=== PATIENT | male | born 1965 | race Caucasian/White ===

== ENCOUNTER 2018-03-01 12:49 | Emergency (ER) | payer MEDICARE ==
[~2018-03-01] VITALS: Ht 188 cm; Wt 95.3 kg
--- NOTE | 2018-03-01 13:22 | Emergency Room Report ---
History of Present Illness General Chief Complaint: Medication Refill Source: Patient (Mickey Deleon) Present Illness Allergies: Coded Allergies: AMINOGLYCOSIDES (Verified Allergy, Unknown, 03/01/18) STREPTOMYCIN (Verified Allergy, Unknown, 03/01/18) Nursing Documentation-[facility] Past Medical History: No History, Except For Hx Hypertension: Yes (Mickey Deleon) Physical Exam Vital Signs Date Time Temp Pulse Resp B/P (MAP) Pulse Ox O2 Delivery O2 Flow Rate FiO2 03/01/18 13:00 97.7 78 18 163/96 97 Room Air 97.7 (Mickey Deleon) Medical Decision Making PA Attestation Please note that I was notified of the patient's request for refill of his medications. At this time I did speak to the patient and notified him that we do not routinely refill HIV medications through the ER. He requires close clinic follow-up, and prescription as appropriate. After we spoke he notified me that our conversation was being taped, I also notified him that it is illegal to be taped without prior noticed and that taped is illegal, he proceeded to explain that he has multiple legal issues and he is aware of the appropriateness. (Harika Cannon DO) Diagnostic Impression: Primary Impression: Encounter for medication refill Last Vital Signs Date Time Temp Pulse Resp B/P (MAP) Pulse Ox O2 Delivery O2 Flow Rate FiO2 03/01/18 13:00 97.7 78 18 163/96 97 Room Air 97.7 (Mickey Deleon) Disposition: HOME, SELF-CARE Condition: Stable Patient Instructions: Medicine Refill at the Emergency Department Additional Instructions: go to the referred facility for medication refill of HIV meds and narcotics Mickey Deleon Mar 01, 2018 13:22 Harika Cannon DO Mar 01, 2018 13:32
[2018-03-01 13:29] VITALS: BP 154/87
[2018-03-01 13:30] VITALS: BP 154/87
== END 2018-03-01 13:30 | disposition home or self-care (01) ==
LOC: EMR 13:18
DX: Z76.0 Encounter for issue of repeat prescription (principal); I10 Essential (primary) hypertension; Z88.1 Allergy status to other antibiotic agents
CPT/HCPCS: 99282